=== PATIENT | male | born 1970 | race Caucasian/White ===

== ENCOUNTER 2016-12-11 22:50 | Emergency (ER) | payer MEDICAID ==
[~2016-12-11] VITALS: Ht 188 cm; Wt 135.5 kg
[~2016-12-11 22:50] MED LIST: ASPI325T4 PO; CEPH-368 PO
[2016-12-11 22:54] VITALS: BP 161/85
[2016-12-11] MEDS ORDERED: OXYcodone/APAP 10/325MG TABLET ONE (23:50)
[2016-12-12] MEDS ORDERED: OXYcodone/APAP 10/325MG TABLET PO ONE
== END 2016-12-12 00:24 | disposition home or self-care (01) ==
LOC: ED 23:59
DX: S22.41XA Multiple fractures of ribs, right side, initial encounter for closed fracture (principal); S30.1XXA Contusion of abdominal wall, initial encounter; V89.2XXA Person injured in unspecified motor-vehicle accident, traffic, initial encounter; Y93.89 Activity, other specified; Y92.89 Other specified places as the place of occurrence of the external cause; I10 Essential (primary) hypertension

== ENCOUNTER 2017-04-03 01:23 | Emergency (ER) | payer MEDICAID ==
[~2017-04-03] VITALS: Ht 182.9 cm; Wt 145.0 kg
[~2017-04-03 01:23] MED LIST changes: +ASPI325T17 PO; -ASPI325T4 PO
[2017-04-03 02:11] LABS: HEMATOCRIT 45.1 % (39.2-51.8); WHITE BLOOD COUNT 8.9 x10^3/uL (3.4-10)
[2017-04-03 02:23] LABS: BLOOD UREA NITROGEN 18 mg/dL (7-18)
[2017-04-03 03:01] VITALS: BP 145/91
== END 2017-04-03 04:20 | disposition home or self-care (01) ==
LOC: ED 04:12
DX: I80.01 Phlebitis and thrombophlebitis of superficial vessels of right lower extremity (principal); I83.91 Asymptomatic varicose veins of right lower extremity; I87.2 Venous insufficiency (chronic) (peripheral); L03.115 Cellulitis of right lower limb; I10 Essential (primary) hypertension; E66.9 Obesity, unspecified
CPT/HCPCS: 36415; 80048; 85025; 93005; 99285

== ENCOUNTER 2017-04-05 21:39 | Emergency (ER) | payer MEDICAID ==
[~2017-04-05] VITALS: Ht 188 cm; Wt 142.0 kg
[2017-04-05] MEDS ORDERED: IBUPROFEN 200 MG TABLET PO ONE (22:30)
[2017-04-05] MEDS ORDERED: IBUPROFEN 200 MG TABLET ONE (22:42)
[2017-04-06 00:40] VITALS: BP 148/78
== END 2017-04-06 00:45 | disposition home or self-care (01) ==
LOC: ED 22:15
DX: I80.01 Phlebitis and thrombophlebitis of superficial vessels of right lower extremity (principal); Z87.891 Personal history of nicotine dependence; Z88.6 Allergy status to analgesic agent
CPT/HCPCS: 99284

== ENCOUNTER 2017-04-30 16:33 | Inpatient (IN) | payer MEDICAID ==
[~2017-04-30] VITALS: Ht 188 cm; Wt 133.4 kg
[2017-04-30 17:19] LABS: HEMOGLOBIN 15.5 g/dL (13.7-18.0); WHITE BLOOD COUNT 11.8 x10^3/uL (3.4-10)
[2017-04-30 17:28] LABS: BLOOD UREA NITROGEN 11 mg/dL (7-18)
[2017-04-30] MEDS ORDERED: DIPHENHYDRAMINE 50 MG/ML, 1ML IVPush ONE (18:00)
[2017-04-30] MEDS ORDERED: KETOROLAC 30 MG/1 ML IVPush ONE (18:00)
[2017-04-30] MEDS ORDERED: VANCOMYCIN PER PHARMACY MC PRN (18:00)
[2017-04-30] MEDS ORDERED: METOCLOPRAMIDE 5 MG/ML, 2ML IVPush ONE (18:00)
[2017-04-30] MEDS ORDERED: SODIUM CHLORIDE 0.9% 1,000ML IVBOLUS ONE (18:00)
[2017-04-30] MEDS ORDERED: KETOROLAC 30 MG/1 ML ONE (18:12)
[2017-04-30] MEDS ORDERED: DIPHENHYDRAMINE 50 MG/ML, 1ML ONE (18:12)
[2017-04-30] MEDS ORDERED: METOCLOPRAMIDE 5 MG/ML, 2ML ONE (18:12)
[2017-04-30] MEDS ORDERED: CEFAZOLIN PMX 2GM/50ML 50 ML IVPB ONE (18:30)
[2017-04-30] MEDS ORDERED: VANCOMYCIN 2,400 MG in SODIUM CHLORIDE 0.9% 500 ML IV ONE (19:00)
[2017-04-30] MEDS ORDERED: ACETAMINOPHEN 325 MG TABLET PO PRN (19:30)
[2017-04-30] MEDS ORDERED: VANCOMYCIN PER PHARMACY MC SCH (19:30)
[2017-04-30] MEDS ORDERED: ENOXAPARIN 40 MG/0.4 ML SQ SCH (19:30)
[2017-04-30] MEDS ORDERED: OXYcodone/APAP 5/325MG TABLET PO PRN (19:30)
[2017-04-30] MEDS ORDERED: LORazepam 2 MG/ML, 1ML IM PRN (19:30)
[2017-04-30] MEDS ORDERED: MORPHINE SULFATE 4 MG/ML, 1ML IVPush PRN (19:30)
[2017-05-01] MEDS: SODIUM CHLORIDE FLUSH 10ML SYR IVF SCH ×2 (00:11→09:00)
[2017-05-01 00:21] VITALS: BP 95/58
[2017-05-01] MEDS ORDERED: PHARMACOKINETIC MONITORING MC PRN (00:30)
[2017-05-01] MEDS ORDERED: DIPHENHYDRAMINE 50 MG/ML, 1ML IVPush PRN (03:30)
[2017-05-01 05:11] VITALS: BP 95/58
[2017-05-01 07:00] VITALS: BP 107/70
[2017-05-01] MEDS ORDERED: VANCOMYCIN 2,500 MG in SODIUM CHLORIDE 0.9% 500 ML IV SCH (07:00)
== END 2017-05-01 13:30 | disposition left against medical advice (07) | DRG 872 ==
LOC: ED 17:54 → EDIP 18:51 → 3NE 23:35
PROVIDERS: ADMIT Internal Medicine; ATTEND Internal Medicine
DX: A41.9 Sepsis, unspecified organism (principal); L03.116 Cellulitis of left lower limb; F10.21 Alcohol dependence, in remission; I10 Essential (primary) hypertension; I73.9 Peripheral vascular disease, unspecified; I87.2 Venous insufficiency (chronic) (peripheral); Z86.14 Personal history of Methicillin resistant Staphylococcus aureus infection; Z86.72 Personal history of thrombophlebitis; E66.9 Obesity, unspecified
CPT/HCPCS: 36415; 80048; 82040; 83605; 83880; 85025; 85610; 85730; 87040; 96372; 96374; 96375; J0690; J1650; J1885; J3370; J1200; J2765; J7030; J7040

== ENCOUNTER 2018-04-21 02:04 | Emergency (ER) | payer MEDICAID ==
[~2018-04-21] VITALS: Ht 188 cm; Wt 143.7 kg
[2018-04-21] MEDS ORDERED: ASPI-496 PO (02:18)
[2018-04-21 02:51] LABS: BASOPHILS # (AUTO) 0.08 x10^3/uL (0-0.1); BASOPHILS % (AUTO) 1 % (0-1); EOSINOPHILS # (AUTO) 0.43 x10^3/uL (0-0.4); EOSINOPHILS % (AUTO) 4 % (1-7); LYMPHOCYTES # (AUTO) 2.72 x10^3/uL (1-3.4); LYMPHOCYTES % (AUTO) 25 % (22-44); MD NO; MEAN CORPUSCULAR HEMOGLOBIN 30.2 pg (27.5-34.5); MEAN CORPUSCULAR HGB CONC 33.5 g/dL (33.2-36.2); MEAN CORPUSCULAR VOLUME 90.2 fL (81-97); MEAN PLATELET VOLUME 9.2 fL (7.4-10.4); MONOCYTES % (AUTO) 7 % (2-9); NEUTROPHILS # (AUTO) 6.77 x10^3/uL (1.8-6.8); NEUTROPHILS % (AUTO) 63 % (42-75); PLATELET COUNT 271 x10^3/uL (130-400); RED BLOOD COUNT 5.13 x10^6/uL (4.38-5.82); RED CELL DISTRIBUTION WIDTH 13.1 % (9.4-14.8)
[2018-04-21 03:01] LABS: ALBUMIN 3.8 g/dL (3.4-5.0); ANION GAP 9 mmol/L (5-15); CALCIUM 8.9 mg/dL (8.5-10.1); CHLORIDE 105 mmol/L (98-107)
[2018-04-21 03:32] VITALS: BP 124/81
== END 2018-04-21 04:08 | disposition home or self-care (01) ==
LOC: ED 03:59
DX: I87.2 Venous insufficiency (chronic) (peripheral) (principal); M79.661 Pain in right lower leg; M25.571 Pain in right ankle and joints of right foot; I10 Essential (primary) hypertension
CPT/HCPCS: 36415; 80048; 82040; 85025; 99285